=== PATIENT | female | born 1950 | race Caucasian/White ===

== ENCOUNTER 2018-06-21 10:29 | Day surgery (SDC) | payer MEDICARE, OTHER ==
[~2018-06-21] VITALS: Ht 152.4 cm; Wt 72.5 kg
[~2018-06-21 10:29] MED LIST: ASPI1TAB PO; CALTCHW5 PO; LIDOCAINE 2% INJ 100 MG/5 ML SDV (FOR ANES.) As Ordered ONE; MULTTAB PO; NS 1,000 ML IV ONE; OMEG1CAP16 PO; PROPOFOL 200 MG/20 ML VIAL As Ordered ONE; SIMV40TA2 PO
--- NOTE | 2018-06-21 11:43 | ROOR ---
Patient Name: Bernie Manjarrez Procedure Date: 06/21/2018 11:20 AM Date of : 1950 Age: 68 Room: [facility] Gender: Female Note Status: Finalized Procedure: Total Colonoscopy to Cecum Indications: High risk colon cancer surveillance: Personal history of colonic polyps, Last colonoscopy: 2013 Providers: Miles Crum MD Referring MD: BRENDA CONTI NP Requesting Provider: Medicines: Monitored Anesthesia Care Complications: No immediate complications. Procedure: Pre-Anesthesia Assessment: - The heart rate, respiratory rate, oxygen saturations, blood pressure, adequacy of pulmonary ventilation, and response to care were monitored throughout the procedure. The Colonoscope was introduced through the anus and advanced to the cecum, identified by appendiceal orifice and ileocecal valve. The colonoscopy was performed without difficulty. The patient tolerated the procedure well. The quality of the bowel preparation was excellent. Findings: The perianal and digital rectal examinations were normal. Non-bleeding internal hemorrhoids were found during retroflexion. The hemorrhoids were small and Grade I (internal hemorrhoids that do not prolapse). Scattered small-mouthed diverticula were found in the recto-sigmoid colon, sigmoid colon and descending colon. The exam was otherwise without abnormality on direct and retroflexion views. Impression: - Non-bleeding internal hemorrhoids. - Diverticulosis in the recto-sigmoid colon, in the sigmoid colon and in the descending colon. - The examination was otherwise normal on direct and retroflexion views. - No specimens collected. - The exam was otherwise normal to the cecum. Recommendation: - Patient has a contact number available for emergencies. The signs and symptoms of potential delayed complications were discussed with the patient. Return to normal activities tomorrow. Written discharge instructions were provided to the patient. - High fiber diet. - Discharge patient to home. - Continue present medications. - Repeat colonoscopy in 5 years for surveillance. - Return to referring physician. - The findings and recommendations were discussed with the patient's family. Miles Crum MD Miles Crum MD 06/21/2018 11:42:42 AM This report has been signed electronically. Number of Addenda: 0 Note Initiated On: 06/21/2018 11:20 AM Estimated Blood Loss: Estimated blood loss: none.
[2018-06-21 12:08] VITALS: BP 136/77
== END 2018-06-21 12:10 | disposition home or self-care (01) ==
LOC: M OPP 10:29
PROVIDERS: ATTEND Internal Medicine Gastroenterology
DX: Z86.010 Personal history of colon polyps (principal); K64.0 First degree hemorrhoids; K57.30 Diverticulosis of large intestine without perforation or abscess without bleeding; Z79.82 Long term (current) use of aspirin; Z79.899 Other long term (current) drug therapy

== ENCOUNTER → 2019-11-30 | Outpatient (REF) | payer MEDICARE, OTHER ==
[~2019-11-30] MED LIST changes: -ASPI1TAB PO; +ASPI81TA26 PO; -LIDOCAINE 2% INJ 100 MG/5 ML SDV (FOR ANES.) As Ordered ONE; -NS 1,000 ML IV ONE; -PROPOFOL 200 MG/20 ML VIAL As Ordered ONE; -SIMV40TA2 PO; +SIMV40TA20 PO
[2019-11-30 17:12] LABS: BASO % 0.9 % (0.0-1.0); EOS # 0.1 10^3/uL (0.0-0.5); EOS % 2.2 % (0.0-3.0); HEMATOCRIT 41.6 % (36.0-47.0); HEMOGLOBIN 13.4 g/dl (12.0-15.5); LYMPH # 2.1 10^3/uL (1.5-5.0); LYMPH % 45.6 % (24.0-44.0); MEAN CORPUSCULAR HEMOGLOBIN 29.2 pg (27.0-33.0); MEAN CORPUSCULAR HGB CONC 32.2 g/dl (32.0-36.5); MEAN CORPUSCULAR VOLUME 90.6 fl (80.0-96.0); MONO # 0.4 10^3/uL (0.0-0.8); MONO % 9.3 % (0.0-5.0); NEUTROPHILS # 1.9 10^3/uL (1.5-8.5); NEUTROPHILS % 41.8 % (36.0-66.0); PLATELET COUNT, AUTOMATED 294 10^3/uL (150-450); RED BLOOD COUNT 4.59 10^6/uL (4.00-5.40); WHITE BLOOD COUNT 4.5 10^3/uL (4.0-10.0)
[2019-11-30 17:17] LABS: BLOOD UREA NITROGEN 13 MG/DL (7-18); CALCIUM LEVEL 9.6 MG/DL (8.8-10.2); CARBON DIOXIDE LEVEL 26 MEQ/L (21-32); CHLORIDE LEVEL 105 MEQ/L (98-107); GLOMERULAR FILTRATION RATE > 60.0 (>39); GLUCOSE, FASTING 91 MG/DL (70-100); POTASSIUM SERUM 4.5 MEQ/L (3.5-5.1); SODIUM LEVEL 139 MEQ/L (136-145)
[2019-11-30 17:18] LABS: ALBUMIN 4.2 GM/DL (3.2-5.2); ALT/SGPT 26 U/L (12-78); BILIRUBIN,TOTAL 0.4 MG/DL (0.2-1.0); CHOLESTEROL LEVEL 209 MG/DL (<200); HDL CHOLESTEROL 55 MG/DL (>40); LDL CHOLESTEROL 119 MG/DL (<100); NON-HDL-C 154 MG/DL; TOTAL PROTEIN 7.3 GM/DL (6.4-8.2); TRIGLYCERIDES LEVEL 177 MG/DL (<150)
== END ==
LOC: M SFHCADAM 11:47
PROVIDERS: ATTEND Family Medicine
DX: E78.5 Hyperlipidemia, unspecified (principal)

== ENCOUNTER 2020-06-18 12:20 | Emergency (ER) | payer MEDICARE, OTHER ==
[~2020-06-18] VITALS: Ht 149.9 cm; Wt 72.2 kg
--- NOTE | 2020-06-18 13:17 | REP ---
INDICATION: laceration. COMPARISON: None. TECHNIQUE: Four views. FINDINGS: Four views of the right hand demonstrate mild diffuse osteopenia. There is some soft tissue swelling dorsally over the metacarpals. Overlying dressing artifact is seen here.. No fracture or subluxation is seen. No opaque foreign body noted. IMPRESSION: Soft tissue swelling dorsally over the metacarpals. Diffuse osteopenia. No fracture or opaque foreign body seen.. <Electronically signed by Cristi David > 06/18/20 [id number]
--- OUTSIDE RECORDS SUMMARY | 2020-06-18 14:54 | CCD ---
Author Author [facility] Organization [employer] [facility] Address Unknown Phone Unavailable Care Team Providers Care Boiler Installer Name Role Phone Nataliia Gonzalez Unavailable PROBLEMS Type Condition ICD9-CM Code [id number] Code Onset Dates Condition S tatus SNOMED Code Notes Problem Hyperlipidemia, unspecified hyperlipidemia type E7 8.5 Active [id number] ALLERGIES No Known Allergies ENCOUNTERS from 1950 to 2020-04-19 Encounter Location Date Provider Diagnosis [facility] [address] [place] [address] Apr, Nataliia Vicente-Tartestef IMMUNIZATIONS Vaccine Route Administration Date Status Prevnar (Pharmacy Given) Unknown October 26, 2012 Adminis tered Zoster 0.65mL (Zostavax) Unknown Mar 16, 2014 Adminis tered Pneumococcal Adult 0.5mL (Pneumovax 23) Unknown Mar 12, 2016 Administered SOCIAL HISTORY Tobacco Use: Social History Observation Description Date Details (start date - stop date) Never Smoker Sex Assigned At : Social History Observation Description Sex Assigned At Unknown Audit Question Answer Notes Total Score: 0 Interpretation: Alcohol Education Drug and Alcohol Question Answer Notes Total Score: 0 Interpretation: No problems reported Alcohol Screening: Question Answer Notes Did you have a drink containing alcohol in the past year? No Points 0 Interpretation Negative Tobacco Use: Question Answer Notes Are you a: never smoker REASON FOR REFERRAL No Information VITAL SIGNS No information MEDICATIONS Medication SIG (Take, Route, Frequency, Duration) Notes Start Da te End Date Status Aspir-Low 81 MG 1 tablet Orally Once a day for 30 day(s) Active Vitamin C 1000 MG 1 tablet Orally Once a day for 30 day(s) Active AREDS OTC Active Fish Oil 1000 MG 1 capsule Orally Once a day for 30 day(s) Active Simvastatin 40 MG 1 tablet in the evening Oral Daily for 90 days Active Calcium 600 MG 1 tablet with meals Orally Twice a day for 30 day(s) Active PROCEDURES No Information RESULTS No Results REASON FOR VISIT bone density order MEDICAL (GENERAL) HISTORY Type Description Date Medical History hyperlipidemia Medical History heart murmur Medical History osteopenia Medical History normal mammogram (03/2019) Surgical History D & C 3-4 Surgical History colonoscopy (due for next in 2022) Surgical History carpal tunnel R Goals Section No Information Health Concerns No Information MEDICAL EQUIPMENT No Information MENTAL STATUS No Information FUNCTIONAL STATUS No Information ASSESSMENTS No Information PLAN OF TREATMENT No Information Insurance Providers Payer Name Payer Address Payer Phone Insured Name Patient Relati onship to Insured Coverage Start Date Coverage End Date [facility] [address] [address] [facility] [phone] [address] ZIMMER MEDICARE Part A and B [address] [facility] [address] [phone] DANE ZIMMER
--- OUTSIDE RECORDS SUMMARY | 2020-06-18 14:54 | CCD ---
Author Author [employer] Organization [employer] Address Unknown Phone Unavailable Care Team Providers Care Service Employee Name Role Phone Nataliia Gonzalez Unavailable PROBLEMS Type Condition ICD9-CM Code [id number] Code Onset Dates Condition S tatus SNOMED Code Notes Problem Hyperlipidemia, unspecified hyperlipidemia type E7 8.5 Active [id number] ALLERGIES No Known Allergies ENCOUNTERS from 1950 to 2020-03-19 Encounter Location Date Provider Diagnosis [facility] [address] [address] Mar, Nataliia Vicente-Tartestef IMMUNIZATIONS Vaccine Route Administration Date [...] MEDICATIONS Medication SIG (Take, Route, Frequency, Duration) Start Date En d Date Status Aspir-Low 81 MG 1 tablet [...] Information RESULTS No Results REASON FOR VISIT mammo order MEDICAL (GENERAL) HISTORY Type Description Date [...] Insured Coverage Start Date Coverage End Date MEDICARE Part A and B [address] [facility] [phone] [phone] ZIM[address] [facility] [address] [address] [facility] [phone] D[address] ZIMMER
--- OUTSIDE RECORDS SUMMARY | 2020-06-18 14:54 | CCD ---
Author Author [facility] Organization [facility] Address Unknown Phone Unavailable Care Team Providers Care Last Pattern Grader Name Role Phone Nataliia Gonzalez Unavailable PROBLEMS Type Condition ICD9-CM Code [id number] Code Onset Dates Condition S tatus SNOMED Code Notes Problem Hyperlipidemia, unspecified hyperlipidemia type E7 8.5 Active [id number] ALLERGIES No Known Allergies ENCOUNTERS from 1950 to 2020-04-20 Encounter Location Date Provider Diagnosis [facility] [address] [place] [address] Apr, Nataliia Vicente-Tartestef Screening for osteoporosis Z13.820 IMMUNIZATIONS Vaccine Route Administration Date Status Prevnar [...] for 30 day(s) Active Simvastatin 40 MG TAKE ONE TABLET BY MOUTH DAILY IN THE EVENING for 9 0 Active Calcium 600 MG 1 tablet with meals Orally Twice a day for 30 day(s) Active PROCEDURES No Information RESULTS No Results REASON FOR VISIT order for bone density MEDICAL (GENERAL) HISTORY Type Description Date Medical History hyperlipidemia Medical History heart murmur Medical History osteopenia Medical History normal mammogram (03/2019) Surgical History D & C 3-4 Surgical History colonoscopy (due for next in 2022) Surgical History carpal tunnel R Goals Section No Information Health Concerns No Information MEDICAL EQUIPMENT No Information MENTAL STATUS No Information FUNCTIONAL STATUS No Information ASSESSMENTS Encounter Date Diagnosis Assessment Notes Treatment Notes Treatm ent Clinical Notes Apr, Screening for osteoporosis (ICD-10 - Z13.820) PLAN OF TREATMENT Medication Medication Name Sig Start Date Stop Date Simvastatin 40 MG TAKE ONE TABLET BY MOUTH DAILY IN THE EVENING for 90 Future Test Test Name Order Date Dexa, Full Body [id number] Insurance Providers Payer Name Payer Address Payer Phone Insured Name Patient Relati onship to Insured Coverage Start Date Coverage End Date [facility] [address] [address] [facility] [phone] [address] MEDICARE Part A and B [address] [facility] [phone] DANE ZIMMER
--- OUTSIDE RECORDS SUMMARY | 2020-06-18 14:54 | CCD ---
Author Author [facility] Organization [facility] Address Unknown Phone Unavailable Care Team Providers Care Events Assistant Name Role Phone RING, K VIN PA Unavailable Unavailable RING, K VIN PA Unavailable Unavailable RING, K VIN PA Unavailable Unavailable RING, K VIN PA Unavailable Unavailable RING, K VIN PA Unavailable Unavailable RING, K VIN PA Unavailable Unavailable RING, K VIN PA Unavailable Unavailable RING, K VIN PA Unavailable Unavailable RING, K VIN PA Unavailable Unavailable RING, K VIN PA Unavailable Unavailable RING, K VIN PA Unavailable Unavailable RING, K VIN PA Unavailable Unavailable RING, K VIN PA Unavailable Unavailable RING, K VIN PA Unavailable Unavailable RING, K VIN PA Unavailable Unavailable RING, K VIN PA Unavailable Unavailable RING, K VIN PA Unavailable Unavailable RING, K VIN PA Unavailable Unavailable RING, K VIN PA Unavailable Unavailable RING, K VIN PA Unavailable Unavailable RING, K VIN PA Unavailable Unavailable Vicente-Tartell M Nataliia DO Unavailable Unavailabl e Vicente-Tartell, M Nataliia DO Unavailable Unavailabl e Vicente-Tartell, M Nataliia DO Unavailable Unavailabl e Vicente-Tartell, M Nataliia DO Unavailable Unavailabl e Vicente-Tartell, M Nataliia DO Unavailable Unavailabl e Vicente-Tartell, M Nataliia DO Unavailable Unavailabl e Vicente-Tartell, M Nataliia DO Unavailable Unavailabl e Vicente-Tartell, M Nataliia DO Unavailable Unavailabl e Vicente-Tartell, M Nataliia DO Unavailable Unavailabl e Vicente-Tartell, M Nataliia DO Unavailable Unavailabl e Vicente-Tartell, M Nataliia DO Unavailable Unavailabl e Vicente-Tartell, M Nataliia DO Unavailable Unavailabl e Vicente-Tartell, M Nataliia DO Unavailable Unavailabl e Vicente-Tartell, M Nataliia DO Unavailable Unavailabl e Vicente-Tartell, M Nataliia DO Unavailable Unavailabl e Vicente-Tartell, M Nataliia DO Unavailable Unavailabl e Vicente-Tartell, M Nataliia DO Unavailable Unavailabl e Vicente-Tartell, M Nataliia DO Unavailable Unavailabl e Vicente-Tartell, M Nataliia DO Unavailable Unavailabl e Vicente-Tartell, M Nataliia DO Unavailable Unavailabl e Vicente-Tartell, M Nataliia DO Unavailable Unavailabl e Vicente-Tartell, M Nataliia DO Unavailable Unavailabl e Vicente-Tartell, M Nataliia DO Unavailable Unavailabl e Vicente-Tartell, M Nataliia DO Unavailable Unavailabl e Vicente-Tartell, M Nataliia DO Unavailable Unavailabl e Vicente-Tartell, M Nataliia DO Unavailable Unavailabl e Vicente-Tartell, M Nataliia DO Unavailable Unavailabl e Vicente-Tartell, M Nataliia DO Unavailable Unavailabl e Vicente-Tartell, M Nataliia DO Unavailable Unavailabl e Vicente-Tartell, M Nataliia DO Unavailable Unavailabl e Vicente-Tartell, M Nataliia DO Unavailable Unavailabl e Vicente-Tartell, M Nataliia DO Unavailable Unavailabl e Vicente-Tartell, M Nataliia DO Unavailable Unavailabl e Vicente-Tartell, M Nataliia DO Unavailable Unavailabl e Vicente-Tartell, M Nataliia DO Unavailable Unavailabl e Vicente-Tartell, M Nataliia DO Unavailable Unavailabl e Vicente-Tartell, M Nataliia DO Unavailable Unavailabl e Vicente-Tartell, M Nataliia DO Unavailable Unavailabl e Vicente-Tartell, M Nataliia DO Unavailable Unavailabl e Vicente-Tartell, M Nataliia DO Unavailable Unavailabl e Vicente-Tartell, M Nataliia DO Unavailable Unavailabl e Vicente-Tartell, M Nataliia DO Unavailable Unavailabl e Vicente-Tartell, M Nataliia DO Unavailable Unavailabl e Vicente-Tartell, M Nataliia DO Unavailable Unavailabl e Vicente-Tartell, M Nataliia DO Unavailable Unavailabl e Vicente-Tartell, M Nataliia DO Unavailable Unavailabl e Vicente-Tartell, M Nataliia DO Unavailable UnavailMack King MD Unavailable Unavailable Mack Wells MD Unavailable Unavailable Mack Wells MD Unavailable Unavailable Mack Wells MD Unavailable Unavailable Mack Wells MD Unavailable Unavailable Mack Wells MD Unavailable Unavailable Mack Wells MD Unavailable Unavailable Mack Wells MD Unavailable Unavailable Mack Wells MD Unavailable Unavailable Mack Wells MD Unavailable Unavailable Mack Wells MD Unavailable Unavailable Mack Wells MD Unavailable Unavailable Mack Wells MD Unavailable Unavailable Mack Wells MD Unavailable Unavailable Mack Wells MD Unavailable Unavailable Mack Wells MD Unavailable Unavailable Mack Wells MD Unavailable Unavailable Mack Wells MD Unavailable Unavailable Mack Wells MD Unavailable Unavailable Mack Wells MD Unavailable Unavailable Mack Wells MD Unavailable Unavailable Mack Wells MD Unavailable Unavailable Mack Wells MD Unavailable Unavailable Mack Wells MD Unavailable Unavailable Mack Wells MD Unavailable Unavailable Mack Wells MD Unavailable Unavailable Mack Wells MD Unavailable Unavailable Mack Wells MD Unavailable Unavailable Mack Wells MD Unavailable Unavailable Mack Wells MD Unavailable Unavailable Mack Wells MD Unavailable Unavailable Mack Wells MD Unavailable Unavailable Mack Wells MD Unavailable Unavailable Mack Wells MD Unavailable Unavailable Mack Wells MD Unavailable Unavailable Mack Wells MD Unavailable Unavailable Mack Wells MD Unavailable Unavailable Mack Wells MD Unavailable Unavailable Mack Wells MD Unavailable Unavailable PriscillaMack MD Unavailable Unavailable Priscilla, Mack Schrader MD Unavailable Unavailable Priscilla, Mack Schrader MD Unavailable Unavailable Priscilla, Mack Schrader MD Unavailable Unavailable Priscilla, M Macrina ORELLANA Unavailable Unavailable Priscilla, Mack Schrader MD Unavailable Unavailable Prisiclla, Mack Schrader MD Unavailable Unavailable PriscillaMack MD Unavailable Unavailable Priscilla, Mack Schrader MD Unavailable Unavailable Priscilla, Mack Schrader MD Unavailable Unavailable Priscilla, Mack Schrader MD Unavailable Unavailable Priscilla, Mack Schrader MD Unavailable Unavailable PriscillaMack MD Unavailable Unavailable PriscillaMack MD Unavailable Unavailable PriscillaMack MD Unavailable Unavailable Priscilla, Mack Schrader MD Unavailable Unavailable Priscilla, M Macrina ORELLANA Unavailable Unavailable PriscillaMack MD Unavailable Unavailable PriscillaMack MD Unavailable Unavailable Priscilla, Mack Schrader MD Unavailable Unavailable PriscillaMack MD Unavailable Unavailable PriscillaMack MD Unavailable Unavailable PriscillaMack MD Unavailable Unavailable PriscillaMack MD Unavailable Unavailable PriscillaMack MD Unavailable Unavailable PriscillaMack MD Unavailable Unavailable PriscillaMack MD Unavailable Unavailable PriscillaMack MD Unavailable Unavailable PriscillaMack MD Unavailable Unavailable PriscillaMack MD Unavailable Unavailable PriscillaMack MD Unavailable Unavailable Priscilla M Macrina ORELLANA Unavailable Unavailable PriscillaMack MD Unavailable Unavailable PriscillaMack MD Unavailable Unavailable PriscillaMack MD Unavailable Unavailable PriscillaMack MD Unavailable Unavailable PriscillaMack MD Unavailable Unavailable PriscillaMack MD Unavailable Unavailable PriscillaMack MD Unavailable Unavailable Re-disclosure Warning The records that you are about to access may contain information from federally-assisted alcohol or drug abuse programs. If such information is present, then the following federally mandated warning applies: This information has been disclosed to you from records protected by federal confidentiality rules (42 CFR part 2). The federal rules prohibit you from making any further disclosure of this information unless further disclosure is expressly permitted by the written consent of the person to whom it pertains or as otherwise permitted by 42 CFR part 2. A general authorization for the release of medical or other information is NOT sufficient for this purpose. The Federal rules restrict any use of the information to criminally investigate or prosecute any alcohol or drug abuse patient.The records that you are about to access may contain highly sensitive health information, the redisclosure of which is protected by Article 27-F of the [facility] Public Health law. If you continue you may have access to information: Regarding HIV / AIDS; Provided by facilities licensed or operated by the [facility] Office of Mental Health; or Provided by the [facility] Office for People With Developmental Disabilities. If such information is present, then the following [facility] mandated warning applies: This information has been disclosed to you from confidential records which are protected by state law. State law prohibits you from making any further disclosure of this information without the specific written consent of the person to whom it pertains, or as otherwise permitted by law. Any unauthorized further disclosure in violation of state law may result in a fine or assisted sentence or both. A general authorization for the release of medical or other information is NOT sufficient authorization for further disc losure. Family History Family Member Name Family Member Gender Family Member Status Date o f Status Description Data Source(s) Unknown Female Problem MEDENT ([facility]) Unknown Male Problem MEDENT ([facility]) Encounters Encounter Providers Location Date Indications Data Source(s ) Unknown [address], [facility] [address] 04/18/2020 12:00:00 AM EST eCW1 ([facility]) Unknown [address] [facility] [address] 04/18/2020 12:00:00 AM EST eCW1 ([facility]) Unknown [address] [facility] [address] 03/19/2020 12:00:00 AM EST eCW1 ([facility]) Office Visit, Est Pt., Level 2 FC [address] [place] [address] 11/30/2019 12:00:00 AM EDT eCW1 ([facility]) Unknown [address] [facility] [address] 11/04/2019 12:00:00 AM EDT eCW1 ([facility]) Outpatient Referrer: Nataliia Gonzalez DO 11/03/2019 09:30:00 AM EDT [facility] Outpatient Referrer: Macrina Wells MD 11/03/2019 09:28:00 AM EDT [facility] Unknown [address] [address] 11/03/2019 12:00:00 AM EDT eCW1 ([facility]) Outpatient Attender: VIN Garcia Primary 07/21/2019 08:00:00 AM EST [facility] ([facility]) Immunizations Vaccine Date Status Description Data Source(s) INFLUENZA VIRUS VACCINE QUADRIVALENT 2019- (6 MOS AN D UP) 01/17/2020 12:00:00 AM EDT completed [facility] Medications Medication Brand Name Start Date Product Form Dose Route Admi nistrative Instructions Pharmacy Instructions Status Indications Reaction Description Data Source(s) 100 mcg/0.5 mL 06/01/2020 12:00:00 AM EST suspension 0 INJECT BY [facility] (FIRST DOSE) INJECT BY [facility] (FIRST DOSE) SOLD: 06/01/2020 [facility] Nystatin [id number] UNT/ML Topical Cream Nystatin 07/21/2019 12:00:00 AM EST active MEDENT ([facility]) 150 mg 07/21/2019 12:00:00 AM EST tablet 1 TAKE 1 TABLET BY MOUTH ONCE TAKE 1 TABLET BY MOUTH ONCE SOLD: 07/21/2019 [facility] Fluconazole 150 MG Oral Tablet Fluconazole 07/21/2019 12:00:00 AM EST ORAL active MEDENT ([facility]) 100,000 unit/gram 07/21/2019 12:00:00 AM EST cream 30 APPLY TO AFFECTED AREA IN GROIN EVERY 12 HOURS UNTIL RESOLUTION, NOT TO EXCEED 2 WEEKS APPLY TO AFFECTED AREA IN GROIN EVERY 12 HOURS UNTIL RESOLUTION, NOT TO EXCEED 2 WEEKS SOLD: 07/21/2019 [facility] Insurance Providers Payer name Policy type / Coverage type Policy ID Covered libertarian ID Covered libertarian's relationship to ward Policy Ward Plan Information R [facility] [id number] SP [id number] MEDICARE [id number] UMR O [id number] P [id number] MEDICARE C [id number] S [id number] [id number] [place] (Old) Medigap Part B [id number] Family Dependent [id number] Medicare Natl Govt Servic Medicare Primary [id number] Self [id number] Umr (New [place]) Medigap Part B [id number] Family Dependent [id number] Umr (pr) Medigap Part B [id number] Family Dependent [id number] Medicare Dme Supplies Medigap Part B [id number] Self [id number] [place] [id number] Self [id number] Umr (pr) Medigap Part B [id number] Family Dependent [id number] Medicare Dme Supplies Medigap Part B [id number] Self [id number] [place] Primary [id number] Self [id number] Umr (pr) Medigap Part B [id number] Family Dependent [id number] Medicare Dme Supplies Medigap Part B [id number] Self [id number] [place] Primary [id number] Self [id number] UMR [facility] [id number] HU2 [id number] Umr (pr) Medigap Part B [id number] Family Dependent [id number] Medicare Dme Supplies Medigap Part B [id number] Self [id number] [place] Primary [id number] Self [id number] Umr (pr) Medigap Part B [id number] Family Dependent [id number] Medicare Dme Supplies Medigap Part B [id number] Self [id number] [place] Primary [id number] Self [id number] Umr Medigap Part B [id number] Family Dependent [id number] [place] Medigap Part B [id number] Family Dependent [id number] [place] Primary [id number] Self [id number] MEDICARE [id number] SP [id number] A [place] [id number] HU2 [id number] [place] (Old) Medigap Part B [id number] Family Dependent [id number] Medicare Natl Govt Servic Medicare Primary [id number] Self [id number] UMR O UNAVAILABLE P UNAVAILA BLE MEDICARE C [id number] S [id number] A [place] (Old) Medigap Part B [id number] Family Dependent [id number] Medicare Natl Govt Servic Medicare Primary [id number] Self [id number] Umr [place] Ppo Medigap Part B [id number] Family Dependent [id number] Medicare [place] Govt Servic Medicare Primary [id number] Self [id number] [place] PPO O [id number] P [id number] [place] Ppo Medigap Part B [id number] Family Dependent [id number] Medicare [place] Govt Servic Medicare Primary [id number] Self [id number] [place] Ppo Medigap Part B [id number] Family Dependent 333 Medicare Natl Govt Servic Medicare Primary Self MEDICARE [id number] SP [id number] A MEDICARE P UNAVAILABLE S UNAVAILA BLE [id number] Problems, Conditions, and Diagnoses Code Display Name Description Problem Type Effective Dates Data Source(s) E78.5 15783279 Hyperlipidemia, unspecified hyperlipidemi a type Problem 11/30/2019 12:00:00 AM EDT [facility] Results ID Date Data Source [id number] 04/16/2020 12:00:00 AM EST [facility] Caitlin Vicente DO Patient Name: DANE ZIMMER [id number] [address] [facility] [place] [address] Date of Exam: 04/16/2020#: Fax: [phone] EXAM: MAMMO SCREENING WITH CADCLINICAL INFORMATION: Screening.Based on the personal and family history information your patient suppliedat the time of imaging, her lifetime risk of breast cancer estimated by theTyrer-Cuzick model is 2.7%. Given that this patient has less than 20% TCrisk score, no further medical management is currently recommended at thistime.Your patient's personal and/or family history of cancer submitted at thetime of imaging is suggestive of a hereditary cancer syndrome. She meetsthe criteria for genetic testing established by National [facility] and [place] [employer] guidelines. She should pursue arisk assessment with a hereditary cancer specialist which may includetesting based on these criteria. The benefits and limitations of genetictesting would be discussed, including potential changes to medicalmanagement based on the results. Your patient declined myRisk genetictesting at this time.Digital screening (2D) mammography was performed bilaterally in the CC andMLO projections. Additionally, breast tomosynthesis (3D mammography) wasperformed bilaterally in the CC and MLO projections. Today's exam wascompared to the prior exam(s).By history, the patient has no complaints of a palpable breast abnormalityor other significant breast complaints.The patient states last clinical breast exam was some time during thesummer of 2019.The breasts are unchanged in size and shape. There are no ramon-soft tissuedensities or spiculated masses. There is no internal architecturaldistortion. There are no suspicious ramon-calcific clusters. Skinthickening or nipple retraction is not present. Benign calcifications areagain seen bilaterally.The Volpara volumetric breast density category is B, there are scatteredareas of fibroglandular density.IMPRESSION:BI-RADS Category 2 - Benign Finding(s). Stable mammogram. There is noevidence of malignant alteration of the breasts. Followup examinationrecommended in one year.This mammogram was read with the assistance of Laila RANKIN, an FDAapproved computer aided detection system for mammography.Negative x-ray reports should not delay surgical consultation if a dominantor clinically suspicious mass is present.Not all breast cancers can be identified by mammography. Therefore, werecommend that you continue to perform regular breast self-examination andphysical examination and then promptly contact your physician of anyconcerns or changes.Adenosis and dense breasts may obscure an underlying neoplasm.Jossue Carlson, RODGER/Zuri shanks for referring DANE ZIMMER to our office. Electronically Signed - JOSSUE CARLSON DO 04/16/20 16:26 Name Value Range Interpretation Code Description Data Kenia rce(s) Supporting Document(s) ID Date Data Source CBC with Differential 12/01/2019 10:06:41 AM EDT [facility]CW[facility] Name Value Range Interpretation Code Description Data Kenia rce(s) Supporting Document(s) 4.59 RED BLOOD COUNT eCW1 ([facility]) 41.6 HEMATOCRIT eCW1 ([facility]) 4.5 WHITE BLOOD COUNT eCW1 ([facility]) 13.4 HEMOGLOBIN eCW1 ([facility]) 29.2 MEAN CORPUSCULAR HEMOGLOBIN eC W1 [facility]) 32.2 MEAN CORPUSCULAR HGB CONC eCW1 [facility]) 90.6 MEAN CORPUSCULAR VOLUME e[facility]1 ( [facility]) 13.1 RED CELL DISTRIBUTION WIDTH eC W1 ([facility]) 294 PLATELET COUNT, AUTOMATED eCW1 [facility]) 45.6 LYMPH % eCW1 ([facility]) 41.8 NEUTROPHILS % [facility]CW1 [facility]) 0.9 BASO % eCW1 ([facility]) 9.3 MONO % eCW1 ([facility]) 2.2 EOS % eCW1 ([facility]) 1.9 NEUTROPHILS # [facility]CW1 [facility]) 0.1 EOS # eCW1 ([facility]) 0.0 BASO # eCW1 ([facility]) 0.4 MONO # eCW1 ([facility]) 2.1 LYMPH # eCW1 ([facility]) ID Date Data Source Comprehensive Metabolic Profile (CMP) 12/01/2019 10:06:27 AM EDT [facility] Name Value Range Interpretation Code Description Data Kenia rce(s) Supporting Document(s) 0.80 CREATININE FOR GFR eCW1 ([facility]) > 60.0 GLOMERULAR FILTRATION RATE eCW 1 ([facility]) 91 GLUCOSE, FASTING eCW1 ([facility]) 13 BLOOD UREA NITROGEN eCW1 ([facility]) 4.5 POTASSIUM SERUM eCW1 ([facility]) 139 SODIUM LEVEL eCW1 ([facility]) 26 CARBON DIOXIDE LEVEL eCW1 ([facility]) 105 CHLORIDE LEVEL eCW[facility]) 26 ALT/SGPT eCW1 ([facility]) 73 ALKALINE PHOSPHATASE eCW1 ([facility]) 9.6 CALCIUM LEVEL eCW1 [facility]) 22 AST/SGOT eCW1 ([facility]) 0.4 BILIRUBIN,TOTAL eCW1 ([facility]) 7.3 TOTAL PROTEIN eCW1 [facility]) 1.4 ALBUMIN/GLOBULIN RATIO eCW1 ([facility]) 4.2 ALBUMIN eCW1 ([facility]) ID Date Data Source LIPID PANEL (CARDIAC RISK) 12/01/2019 09:15:10 AM EDT [facility] Name Value Range Interpretation Code Description Data Kenia rce(s) Supporting Document(s) Triglyceride [Mass/volume] in Serum or Plasma by calculation 177 TRIGLYCERIDES LEVEL eCW1 ([facility]) Cholesterol [Moles/volume] in Serum or Plasma 209 CHOLESTEROL LEVEL eCW1 [facility]) 154 NON-HDL-C eCW1 ([facility]) 3.800 CHOLESTEROL RISK RATIO eCW1 ([facility]) Cholesterol in LDL [Mass/volume] in Serum or Plasma by calculation 119 LDL CHOLESTEROL eCW1 [facility]) Cholesterol in HDL [Moles/volume] in Serum or Plasma 55 HDL CHOLESTEROL eCW1 [facility]) ID Date Data Source [id number] 05/20/2019 09:16:00 AM EST MEDENT ([facility]) Name Value Range Interpretation Code Description Data Kenia rce(s) Supporting Document(s) Calcidiol [Mass/volume] in Serum or Plasma <pending> MEDENT ([facility]) ID Date Data Source [id number] 05/20/2019 09:16:00 AM EST MEDENT ([facility]) Name Value Range Interpretation Code Description Data Kenia rce(s) Supporting Document(s) Cholesterol [Mass/volume] in Serum or Plasma 205 mg/dL 131-200 MEDENT ([facility]) Triglyceride [Mass/volume] in Serum or Plasma 153 mg/dL 30-150 MEDENT ([facility]) Cholesterol in LDL [Mass/volume] in Serum or Plasma by calcu lation 121 CALC 50-159 MEDENT ([facility]) Cholesterol in HDL [Mass/volume] in Serum or Plasma 53 mg/dL 35-60 MEDENT ([facility]) ID Date Data Source [id number] 05/20/2019 09:16:00 AM EST MEDENT ([facility]) Name Value Range Interpretation Code Description Data Kenia rce(s) Supporting Document(s) Glucose [Mass/volume] in Serum or Plasma 102 mg/dL 74-99 MEDENT ([facility]) 100-125 mg/dL PRE-DIABETES/FASTING >126 mg/dL DIABETES/FASTING Urea nitrogen [Mass/volume] in Serum or Plasma 18 mg/dL 7-18 MEDENT ([facility]) Sodium [Moles/volume] in Serum or Plasma 142 meq/L 136-145 MEDENT ([facility]) Creatinine 0.9 mg/dL 0.6-1.3 [facility] Potassium [Moles/volume] in Serum or Plasma 4.6 meq/L 3.5-5.1 MEDENT ([facility]) Chloride [Moles/volume] in Serum or Plasma 105 meq/L 98-107 MEDENT ([facility]) Carbon dioxide, total [Moles/volume] in Serum or Plasma 24 meq/L 21 -32 MEDENT ([facility]) Alkaline phosphatase isoenzyme [Units/volume] in Serum or Pl asma 83 mg/dL 46-116 MEDENT ([facility]) Total Bilirubin 0.4 mg/dL 0.2-1.0 MEDENT ([facility]) Calcium [Mass/volume] in Serum or Plasma 9.6 mg/dL 8.5-10.1 MEDENT ([facility]) Aspartate aminotransferase [Enzymatic activity/volume] in Serum or Plasma 24 U/L 15-37 MEDENT ([facility] ) Proteinase 3 Ab [Units/volume] in Serum 7.3 g/dL 6.4-8.2 MEDENT ([facility]) Albumin [Mass/volume] in Serum or Plasma 4.1 g/dL 3.4-5.0 MEDENT ([facility]) Alanine aminotransferase [Enzymatic activity/volume] in Seru m or Plasma 31 U/L 12-78 MEDENT ([facility]) Glomerular filtration rate/1.73 sq M pre dicted among non-blacks [Volume Rate/Area] in Serum or Plasma by Creatinine-based formula (MDRD) >= 60 mL/min MEDENT ([facility]) Glomerular filtration rate/1.73 sq M pre dicted among blacks [Volume Rate/Area] in Serum or Plasma by Creatinine-based formula (MDRD) >= 60 mL/min MEDENT ([facility]) <content>CHRONIC KIDNEY DISEASE STAGING PER NKF</content>
<content></content>
<content>STAGE I & II GFR >= 60 NORMAL TO MILDLY DECREASED</content>
<content>STAGE III GFR 30-59 MODERATELY DECREASED</content>
<content>STAGE IV GFR 15-29 SEVERELY DECREASED</content>
<content>STAGE V GFR <15 VERY LITTLE GFR LEFT</content>
<content>ESRD GFR <15 ON SITE IDENTIFICATION SPECIALIST</content>
<content></content> A/G Ratio 1.28 CALC 1.00-1.90 [facility] ([facility]) Procedure Social History Code Duration Value Status Description Data Source(s ) Smoking 11/30/2019 12:00:00 AM EDT Never Smoker completed Never S selam eCW1 ([facility]) Smoking 11/30/2019 12:00:00 AM EDT Never Smoker completed Never S [facility] Smoking 11/30/2019 12:00:00 AM EDT Never Smoker completed Never S moker [facility] Smoking 11/30/2019 12:00:00 AM EDT Never Smoker completed Never S moker e[facility]) Smoking 11/02/2019 12:00:00 AM EDT Never Smoker completed Never S moker e[facility]) Smoking 11/02/2019 12:00:00 AM EDT Never Smoker completed Never S moker [facility]) Vital Signs ID Date Data Source UNK Name Value Range Interpretation Code Description Data Source(s) Diastolic blood pressure 76 mm[Hg] 76 mm[Hg] [facility] Systolic blood pressure 128 mm[Hg] 128 mm[Hg] e CW1 [facility]) Body temperature 96.8 [degF] 96.8 [degF] [facility] Respiratory rate 18 /min 18 /min eCW1 ([facility]) Heart rate 71 /min 71 /min eCW1 ([facility]) Body mass index (BMI) [Ratio] 29.84 kg/m2 29.84 kg/m2 [facility] Body height 60 [in_i] 60 [in_i] eCW1 ([facility]) Body weight 152.8 [lb_av] 152.8 [lb_av] eCW1 ([facility]) Body mass index (BMI) [Ratio] 30.7 kg/m2 30.7 k g/m2 MEDENT ([facility]) Body height 60 [in_i] 60 [in_i] MEDENT ([facility]) 5'0" Body weight 157.00 [lb_av] 157.00 [lb_av] MEDEN T ([facility], [facility]) Body temperature 99.0 [degF] 99.0 [degF] MEDENT ([facility]) Oxygen saturation in Arterial blood by Pulse oximetry 98 % 98 % MEDENT ([facility], [facility]) Respiratory rate 20 /min 20 /min MEDENT ( [facility], [facility] Heart rate 76 /min 76 /min [facility], [facility] Diastolic blood pressure 87 mm[Hg] 87 mm[Hg] [facility] ([facility], [facility] Systolic blood pressure 147 mm[Hg] 147 mm[Hg] [facility], [facility] Body mass index (BMI) [Ratio] 31.1 kg/m2 31.1 k g/m2 MEDENT ([facility]) Body weight 158.00 [lb_av] 158.00 [lb_av] MEDEN T ([facility]) Body height 59.75 [in_i] 59.75 [in_i] [facility] 4'11.75" Heart rate 60 /min 60 /min [facility]) Diastolic blood pressure 84 mm[Hg] 84 mm[Hg] [facility] ([facility]) Systolic blood pressure 136 mm[Hg] 136 mm[Hg] [facility] Diastolic blood pressure 80 mm[Hg] 80 mm[Hg] [facility] ([facility]) RT Arm Systolic blood pressure 152 mm[Hg] 152 mm[Hg] [facility] RT Arm
[2020-06-18] MEDS ORDERED: LIDOCAINE 1% MDV 20ML VIAL As Ordered ONE (15:45)
[2020-06-18] MEDS ORDERED: LIDOCAINE 1% MDV 20ML VIAL SC ONE (16:00)
[2020-06-18 16:38] VITALS: BP 130/63
[2020-06-18] MEDS ORDERED: BOOSTRIX/ADACEL VACCINE (DIPHTH/PERTUSS/ACELL/TETANUS) 0.5ML SYR IM ONE (16:45)
== END 2020-06-18 16:50 | disposition home or self-care (01) ==
LOC: M ED 12:20
DX: S61.411A Laceration without foreign body of right hand, initial encounter (principal); W22.8XXA Striking against or struck by other objects, initial encounter; Y92.9 Unspecified place or not applicable; Y93.89 Activity, other specified; Y99.9 Unspecified external cause status; M85.841 Other specified disorders of bone density and structure, right hand; E78.5 Hyperlipidemia, unspecified; F17.200 Nicotine dependence, unspecified, uncomplicated; Z79.82 Long term (current) use of aspirin; Z79.899 Other long term (current) drug therapy

== ENCOUNTER 2020-06-20 17:29 | Emergency (ER) | payer MEDICARE, OTHER ==
[~2020-06-20] VITALS: Ht 149.9 cm; Wt 71.2 kg
--- OUTSIDE RECORDS SUMMARY | 2020-06-20 17:37 | CCD ---
Author Author [facility] Organization [facility] Address Unknown Phone Unavailable Care Team Providers Care Burner Hand Name Role Phone RING, K VIN PA [...] K VIN PA Unavailable Unavailable RING, K VNI PA Unavailable Unavailable RING, K VIN PA [...] Vicente-Tartell, M Nataliia DO Unavailable Unavailabl e Vicnete-Tartell, M Nataliia DO Unavailable Unavailabl e Vicente-Tartell, [...] is protected by Article 27-F of the [facility] Public Health law. If you continue you may have access to information: Regarding HIV / AIDS; Provided by facilities licensed or operated by the [facility] Office of Mental Health; or Provided by the [facility] Office for People With Developmental Disabilities. If such information is present, then the following [facility] mandated warning applies: This information has been [...] law may result in a fine or care home sentence or both. A general authorization for [...] Date Indications Data Source(s ) Unknown [address] [facility], [facility] [address] 04/18/2020 12:00:00 AM EST eCW1 ([facility]) Unknown [address] [facility] [address] 04/18/2020 12:00:00 AM EST eCW1 ([facility]) Unknown [address] [facility] [address] 03/19/2020 12:00:00 AM EST eCW1 ([facility]) Office Visit, Est Pt., Level 2 FC [address] [place] [address] 11/30/2019 12:00:00 AM EDT eCW1 ([facility]) Unknown [address] [facility] [address] 11/04/2019 12:00:00 AM EDT eCW1 ([facility]) Outpatient Referrer: Nataliia Gonzalez DO 11/03/2019 09:30:00 AM EDT [facility] Outpatient Referrer: Macrina Wells MD 11/03/2019 09:28:00 AM EDT [facility] Unknown [address] [facility] [address] 11/03/2019 12:00:00 AM EDT eCW1 ([facility]) Outpatient Attender: VIN Garcia Primary 07/21/2019 08:00:00 AM EST MEDENT ([facility]) Immunizations Vaccine Date Status Description Data Source(s) INFLUENZA VIRUS VACCINE QUADRIVALENT 2019- (6 MOS AN D UP) 01/17/2020 12:00:00 AM EDT completed [facility] Medications Medication Brand Name Start Date Product Form Dose Route Admi nistrative Instructions Pharmacy Instructions Status Indications Reaction Description Data Source(s) 100 mcg/0.5 mL 06/01/2020 12:00:00 AM EST suspension 0 INJECT BY [facility] (FIRST DOSE) INJECT BY [facility] (FIRST DOSE) SOLD: 06/01/2020 I-lighting Nystatin [id number] UNT/ML Topical Cream Nystatin 07/21/2019 12:00:00 AM [...] NOT TO EXCEED 2 WEEKS SOLD: 07/21/2019 [facility] Insurance Providers Payer name Policy type / Coverage type Policy ID Covered alliance party ID Covered alliance party's relationship to ward Policy Ward Plan Information R [facility] [id number] 2 [id number] MEDICARE [id number] UMR O [id number] P [id number] MEDICARE C [id number] S [id number] [place] (Old) Medigap Part B [id number] Family Dependent [id number] Medicare Natl Govt Servic Medicare Primary [id number] Self [id number] Umr (New [place]) Medigap Part B [id number] Family Dependent [id number] Umr (pr) Medigap Part B [id number] Family Dependent [id number] Medicare Dme Supplies Medigap Part B [id number] Self [id number] [place] Primary [id number] Self [id number] Umr (pr) Medigap Part B [id number] Family Dependent [id number] Medicare Dme Supplies Medigap Part B [id number] Self [id number] [place] Primary [id number] Self [id number] Umr (pr) Medigap Part B [id number] Family Dependent [id number] Medicare Dme Supplies Medigap Part B [id number] Self [id number] [place] Primary [id number] Self [id number] UMR [facility] [id number] HU2 [id number] Umr (pr) Medigap Part B [id number] Family Dependent [id number] Medicare Dme Supplies Medigap Part B [id number] Self [id number] [place] Primary [id number] Self [id number] Umr (pr) Medigap Part B [id number] Family Dependent [id number] Medicare Dme Supplies Medigap Part B [id number] Self [id number] [place] Primary [id number] Self [id number] Umr Medigap Part B [id number] Family Dependent [id number] [place] Medigap Part B [id number] Family Dependent [id number] [place] Primary [id number] Self [id number] MEDICARE [id number] SP [id number] A [place] [id number] HU2 [id number] [place] (Old) Medigap Part B [id number] Family Dependent [id number] Medicare Natl Govt Servic Medicare Primary [id number] Self [id number] UMR O UNAVAILABLE P UNAVAILA BLE MEDICARE C [id number] S [id number] A [place] (Old) Medigap Part B [id number] Family Dependent [id number] Medicare Natl Govt Servic Medicare Primary [id number] Self [id number] Umr [place] Ppo Medigap Part B [id number] Family Dependent [id number] Medicare Natl Govt Servic Medicare Primary [id number] Self [id number] [place] PPO O [id number] P [id number] [place] Ppo Medigap Part B [id number] Family Dependent [id number] Medicare Natl Govt Servic Medicare Primary [id number] Self [id number] [place] Ppo Medigap Part B [id number] Family Dependent 333 Medicare Natl Govt Servic Medicare Primary Self MEDICARE [id number] SP [id number] A MEDICARE P UNAVAILABLE S UNAVAILA BLE [id number] Problems, Conditions, and Diagnoses Code Display Name Description Problem Type Effective Dates Data Source(s) E78.5 87773051 Hyperlipidemia, unspecified hyperlipidemi a type Problem 11/30/2019 12:00:00 AM EDT eCW1 ([facility]) Results ID Date Data Source [id number] 04/16/2020 12:00:00 AM EST [facility] Caitlin Vicente DO Patient Name: DANE ZIMMER [id number] Date of : [place] [address]- Date of Exam: 04/16/2020#: Fax: [phone] EXAM: [...] criteria for genetic testing established by National [facility] and [employer] guidelines. She should pursue arisk [...] breasts may obscure an underlying neoplasm.Jossue Carlson, RODGER/jmcTtreasure shanks for referring DANE ZIMMER to our office. Electronically Signed - JOSSUE CARLSON DO 04/16/20 16:26 Name Value Range Interpretation Code Description Data Kenia rce(s) Supporting Document(s) ID Date Data Source CBC with Differential 12/01/2019 10:06:41 AM EDT eCW1 ([facility]) Name Value Range Interpretation Code Description Data Kenia rce(s) Supporting Document(s) 4.59 RED BLOOD COUNT eCW1 ([facility]) 41.6 HEMATOCRIT eCW1 ([facility]) 4.5 WHITE BLOOD COUNT eCW1 ([facility]) 13.4 HEMOGLOBIN eCW1 ([facility]) 29.2 MEAN CORPUSCULAR HEMOGLOBIN eC W1 ([facility]) 32.2 MEAN CORPUSCULAR HGB CONC eCW1 ([facility]) 90.6 MEAN CORPUSCULAR VOLUME eCW1 ( [facility]) 13.1 RED CELL DISTRIBUTION WIDTH eC W1 ([facility]) 294 PLATELET COUNT, AUTOMATED eCW1 ([facility]) 45.6 LYMPH % eCW1 ([facility]) 41.8 NEUTROPHILS % eCW1 ([facility]) 0.9 BASO % eCW1 ([facility]) 9.3 MONO % eCW1 ([facility]) 2.2 EOS % eCW1 ([facility]) 1.9 NEUTROPHILS # eCW1 ([facility]) 0.1 EOS # eCW1 ([facility]) 0.0 BASO # eCW1 ([facility]) 0.4 MONO # eCW1 ([facility]) 2.1 LYMPH # eCW1 ([facility]) ID Date Data Source Comprehensive Metabolic Profile (CMP) 12/01/2019 10:06:27 AM EDT eCW1 ([facility]) Name Value Range Interpretation Code Description Data Kenia rce(s) Supporting Document(s) 0.80 CREATININE FOR GFR eCW1 ([facility]) > 60.0 GLOMERULAR FILTRATION RATE eCW 1 ([facility]) 91 GLUCOSE, FASTING eCW1 ([facility]) 13 BLOOD UREA NITROGEN eCW1 ([facility]) 4.5 POTASSIUM SERUM eCW1 ([facility]) 139 SODIUM LEVEL eCW1 ([facility]) 26 CARBON DIOXIDE LEVEL eCW1 ([facility]) 105 CHLORIDE LEVEL eCW1 ([facility]) 26 ALT/SGPT eCW1 ([facility]) 73 ALKALINE PHOSPHATASE eCW1 ([facility]) 9.6 CALCIUM LEVEL eCW1 ([facility]) 22 AST/SGOT eCW1 ([facility]) 0.4 BILIRUBIN,TOTAL eCW1 ([facility]) 7.3 TOTAL PROTEIN eCW1 ([facility]) 1.4 ALBUMIN/GLOBULIN RATIO eCW1 ([facility]) 4.2 ALBUMIN eCW1 ([facility]) ID Date Data Source LIPID PANEL (CARDIAC RISK) 12/01/2019 09:15:10 AM EDT eCW1 ( [facility]) Name Value Range Interpretation Code Description Data Kenia rce(s) Supporting Document(s) Triglyceride [Mass/volume] in Serum or Plasma by calculation 177 TRIGLYCERIDES LEVEL eCW1 ([facility]) Cholesterol [Moles/volume] in Serum or Plasma 209 CHOLESTEROL LEVEL eCW1 ([facility]) 154 NON-HDL-C eCW1 ([facility]) 3.800 CHOLESTEROL RISK RATIO eCW1 ([facility]) Cholesterol in LDL [Mass/volume] in Serum or Plasma by calculation 119 LDL CHOLESTEROL eCW1 ([facility]) Cholesterol in HDL [Moles/volume] in Serum or Plasma 55 HDL CHOLESTEROL eCW1 ([facility]) ID Date Data Source [id number] 05/20/2019 09:16:00 AM EST MEDENT ([facility]) Name Value Range Interpretation Code Description Data Kenia rce(s) Supporting Document(s) Calcidiol [Mass/volume] in Serum or Plasma <pending> MEDENT ([facility]) ID Date Data Source [id number] 05/20/2019 09:16:00 AM EST MEDENT ([facility]) Name Value Range Interpretation Code Description Data Kenia rce(s) Supporting Document(s) Cholesterol [Mass/volume] in Serum or Plasma 205 mg/dL 131-200 MEDENT ([facility]) Triglyceride [Mass/volume] in Serum or Plasma 153 mg/dL 30-150 MEDENT ([facility]) Cholesterol in LDL [Mass/volume] in Serum or Plasma by calcu lation 121 CALC 50-159 MEDENT ([facility]) Cholesterol in HDL [Mass/volume] in Serum or Plasma 53 mg/dL 35-60 MEDENT ([facility]) ID Date Data Source [id number] 05/20/2019 09:16:00 AM EST MEDENT ([facility]) Name Value Range Interpretation Code Description Data Kenia rce(s) Supporting Document(s) Glucose [Mass/volume] in Serum or Plasma 102 mg/dL 74-99 MEDENT ([facility]) 100-125 mg/dL PRE-DIABETES/FASTING >126 mg/dL DIABETES/FASTING Urea nitrogen [Mass/volume] in Serum or Plasma 18 mg/dL 7-18 MEDENT ([facility]) Sodium [Moles/volume] in Serum or Plasma 142 meq/L 136-145 MEDENT ([facility]) Creatinine 0.9 mg/dL 0.6-1.3 [facility] Potassium [Moles/volume] in Serum or Plasma 4.6 meq/L 3.5-5.1 MEDENT ([facility]) Chloride [Moles/volume] in Serum or Plasma 105 meq/L 98-107 MEDENT ([facility]) Carbon dioxide, total [Moles/volume] in Serum or Plasma 24 meq/L 21 -32 MEDENT ([facility]) Alkaline phosphatase isoenzyme [Units/volume] in Serum or Pl asma 83 mg/dL 46-116 MEDENT ([facility]) Total Bilirubin 0.4 mg/dL 0.2-1.0 MEDENT ([facility]) Calcium [Mass/volume] in Serum or Plasma 9.6 mg/dL 8.5-10.1 MEDENT ([facility]) Aspartate aminotransferase [Enzymatic activity/volume] in Serum or Plasma 24 U/L 15-37 MEDENT ([facility] ) Proteinase 3 Ab [Units/volume] in Serum 7.3 g/dL 6.4-8.2 MEDENT ([facility]) Albumin [Mass/volume] in Serum or Plasma 4.1 g/dL 3.4-5.0 MEDENT ([facility]) Alanine aminotransferase [Enzymatic activity/volume] in Seru m or Plasma 31 U/L 12-78 MEDENT ([facility]) Glomerular filtration rate/1.73 sq M pre dicted among non-blacks [Volume Rate/Area] in Serum or Plasma by Creatinine-based formula (MDRD) >= 60 mL/min MEDENT ([facility]) Glomerular filtration rate/1.73 sq M pre dicted among blacks [Volume Rate/Area] in Serum or Plasma by Creatinine-based formula (MDRD) >= 60 mL/min MEDENT ([facility]) <content>CHRONIC KIDNEY DISEASE STAGING PER NKF</content>
<content></content>
<content>STAGE I & II GFR >= 60 NORMAL TO MILDLY DECREASED</content>
<content>STAGE III GFR 30-59 MODERATELY DECREASED</content>
<content>STAGE IV GFR 15-29 SEVERELY DECREASED</content>
<content>STAGE V GFR <15 VERY LITTLE GFR LEFT</content>
<content>ESRD GFR <15 ON AUTOMOBILE UPHOLSTERY TRIM INSTALLER</content>
<content></content> A/G Ratio 1.28 CALC 1.00-1.90 [facility] ([facility]) Procedure Social History Code Duration Value Status Description Data Source(s ) Smoking 11/30/2019 12:00:00 AM EDT Never Smoker completed Never S selam eCW1 ([facility]) Smoking 11/30/2019 12:00:00 AM EDT Never Smoker completed Never S moker eCW1 ([facility]) Smoking 11/30/2019 12:00:00 AM EDT Never Smoker completed Never S moker eCW1 ([facility]) Smoking 11/30/2019 12:00:00 AM EDT Never Smoker completed Never S moker eCW1 ([facility]) Smoking 11/02/2019 12:00:00 AM EDT Never Smoker completed Never S moker eCW1 ([facility]) Smoking 11/02/2019 12:00:00 AM EDT Never Smoker completed Never S moker eCW1 ([facility]) Vital Signs ID Date Data Source UNK Name Value Range Interpretation Code Description Data Source(s) Diastolic blood pressure 76 mm[Hg] 76 mm[Hg] eCW1 ([facility]) Systolic blood pressure 128 mm[Hg] 128 mm[Hg] e CW1 ([facility]) Body temperature 96.8 [degF] 96.8 [degF] eCW1 ( [facility]) Respiratory rate 18 /min 18 /min eCW1 ([facility]) Heart rate 71 /min 71 /min eCW1 ([facility]) Body mass index (BMI) [Ratio] 29.84 kg/m2 29.84 kg/m2 eCW1 ([facility]) Body height 60 [in_i] 60 [in_i] eCW1 ([facility]) Body weight 152.8 [lb_av] 152.8 [lb_av] eCW1 ([facility]) Body mass index (BMI) [Ratio] 30.7 kg/m2 30.7 k g/m2 MEDENT ([facility] Body height 60 [in_i] 60 [in_i] MEDENT ([facility]) 5'0" Body weight 157.00 [lb_av] 157.00 [lb_av] MEDEN T ([facility] Body temperature 99.0 [degF] 99.0 [degF] MEDENT ([facility]) Oxygen saturation in Arterial blood by Pulse oximetry 98 % 98 % MEDENT ([facility]) Respiratory rate 20 /min 20 /min MEDENT ( [facility], [facility]) Heart rate 76 /min 76 /min [facility], [facility] Diastolic blood pressure 87 mm[Hg] 87 mm[Hg] [facility] ([facility] Systolic blood pressure 147 mm[Hg] 147 mm[Hg] [facility] Body mass index (BMI) [Ratio] 31.1 kg/m2 31.1 k g/m2 MEDENT ([facility]) Body weight 158.00 [lb_av] 158.00 [lb_av] MEDEN T ([facility]) Body height 59.75 [in_i] 59.75 [in_i] [facility] 4'11.75" Heart rate 60 /min 60 /min [facility] ([facility]) Diastolic blood pressure 84 mm[Hg] 84 mm[Hg] [facility] ([facility]) Systolic blood pressure 136 mm[Hg] 136 mm[Hg] M [facility]) Diastolic blood pressure 80 mm[Hg] 80 mm[Hg] [facility] ([facility]) RT Arm Systolic blood pressure 152 mm[Hg] 152 mm[Hg] M [facility] RT Arm
--- OUTSIDE RECORDS SUMMARY | 2020-06-20 18:31 | CCD ---
Author Author [facility] Organization [facility] Address Unknown Phone Unavailable Care Team Providers Care Material Processor Name Role Phone RING, K VIN PA [...] Unavailable Unavailable Mack Wells MD Unavailable Unavailable Mcak Wells MD Unavailable Unavailable Mack Wells MD Unavailable Unavailable Mack Wells MD Unavailable Unavailable Mack Wells MD Unavailable Unavailable Mack Wells MD Unavailable Unavailable Mack Wells MD Unavailable Unavailable Mack eWlls MD Unavailable Unavailable Mack Wells MD Unavailable [...] Unavailable Priscilla M Macrina ORELLANA Unavailable Unavailable PriscillaMcak MD Unavailable Unavailable PriscillaMack MD Unavailable Unavailable [...] is protected by Article 27-F of the [facility] Public Health law. If you continue you may have access to information: Regarding HIV / AIDS; Provided by facilities licensed or operated by the [facility] Office of Mental Health; or Provided by the [facility] Office for People With Developmental Disabilities. If such information is present, then the following [facility] mandated warning applies: This information has [...] law may result in a fine or mcfp sentence or both. A general authorization for [...] Date Indications Data Source(s ) Unknown [address] [facility], [facility] [address] 04/18/2020 12:00:00 AM EST eCW1 ([facility]) Unknown [address] [facility] [address] 04/18/2020 12:00:00 AM EST eCW1 ([facility]) Unknown [address] [facility] [address] 03/19/2020 12:00:00 AM EST eCW1 ([facility]) Office Visit, Est Pt., Level 2 FC [address] [place] [address] 11/30/2019 12:00:00 AM EDT eCW1 ([facility]) Unknown [address] [facility] [address] 11/04/2019 12:00:00 AM EDT eCW1 ([facility]) Outpatient Referrer: Nataliia Gonzalez DO 11/03/2019 09:30:00 AM EDT [facility] Outpatient Referrer: Macrina Wells MD 11/03/2019 09:28:00 AM EDT [facility] Unknown [address] [facility] [address] 11/03/2019 12:00:00 AM EDT eCW1 ([facility]) Outpatient Attender: VIN Garcia Primary 07/21/2019 08:00:00 AM EST MEDENT ([facility]) Immunizations Vaccine Date Status Description Data Source(s) INFLUENZA VIRUS VACCINE QUADRIVALENT 2019- (6 MOS AN D UP) 01/17/2020 12:00:00 AM EDT completed [facility] Medications Medication Brand Name Start Date Product Form Dose Route Admi nistrative Instructions Pharmacy Instructions Status Indications Reaction Description Data Source(s) 100 mcg/0.5 mL 06/01/2020 12:00:00 AM EST suspension 0 INJECT BY [facility] (FIRST DOSE) INJECT BY [facility] (FIRST DOSE) SOLD: 06/01/2020 [facility] Nystatin [id number] UNT/ML Topical Cream Nystatin 07/21/2019 12:00:00 AM [...] NOT TO EXCEED 2 WEEKS SOLD: 07/21/2019 [facility] Insurance Providers Payer name Policy type / Coverage type Policy ID Covered alliance party ID Covered alliance party's relationship to ward Policy Ward Plan Information R [facility] [id number] 2 [id number] MEDICARE [id number] UMR O [id number] P [id number] MEDICARE C [id number] S [id number] R24 [place] (Old) Medigap Part B [id number] Family Dependent [id number] Medicare Natl Govt Servic Medicare Primary [id number] Self [id number] Umr (New [place]) Medigap Part B [id number] Family Dependent [id number] Umr (pr) Medigap Part B [id number] Family Dependent [id number] Medicare Dme Supplies Medigap Part B [id number] Self [id number] [place] Primary [id number] Self [id number] Umr (pr) Medigap Part B [id number] Family Dependent [id number] Medicare Dme Supplies Medigap Part B [id number] Self [id number] [place] Primary [id number] Self [id number] Umr (pr) Medigap Part B [id number] Family Dependent [id number] Medicare Dme Supplies Medigap Part B [id number] Self [id number] [place] Primary [id number] Self [id number] UMR [facility] [id number] HU2 [id number] Umr (pr) Medigap Part B [id number] Family Dependent [id number] Medicare Dme Supplies Medigap Part B [id number] Self [id number] [place] Primary [id number] Self [id number] Umr (pr) Medigap Part B [id number] Family Dependent [id number] Medicare Dme Supplies Medigap Part B [id number] Self [id number] [place] Primary [id number] Self [id number] Umr Medigap Part B [id number] Family Dependent [id number] [place] Medigap Part B [id number] Family Dependent [id number] [place] Primary [id number] Self [id number] MEDICARE [id number] SP [id number] A [place] [id number] HU2 [id number] [place] (Old) Medigap Part B [id number] Family Dependent [id number] Medicare Natl Govt Servic Medicare Primary [id number] Self [id number] UMR O UNAVAILABLE P UNAVAILA BLE MEDICARE C [id number] S [id number] A [place] (Old) Medigap Part B [id number] Family Dependent [id number] Medicare Natl Govt Servic Medicare Primary [id number] Self [id number] Umr [place] Ppo Medigap Part B [id number] Family Dependent [id number] Medicare [place] Govt Servic Medicare Primary [id number] Self [id number] [place] PPO O [id number] P [id number] [place] Ppo Medigap Part B [id number] Family Dependent [id number] Medicare [place] Govt Servic Medicare Primary [id number] Self [id number] [place] Ppo Medigap Part B [id number] Family Dependent 333 Medicare Natl Govt Servic Medicare Primary Self MEDICARE [id number] SP [id number] A MEDICARE P UNAVAILABLE S UNAVAILA BLE [id number] Problems, Conditions, and Diagnoses Code Display Name Description Problem Type Effective Dates Data Source(s) E78.5 [id number] Hyperlipidemia, unspecified hyperlipidemi a type Problem 11/30/2019 12:00:00 AM EDT eCW1 ([facility]) Results ID Date Data Source [id number] 04/16/2020 12:00:00 AM EST [facility] Caitlin Vicente DO Patient Name: DANE ZIMMER [id number] Date of : [place] [id number]- Date of Exam: 04/16/2020#: Fax: [phone] EXAM: [...] [facility] and [place] [employer] guidelines. She should pursue arisk [...] Differential 12/01/2019 10:06:41 AM EDT eCW1 ([facility]) Name Value Range Interpretation Code Description Data Kenia rce(s) Supporting Document(s) 4.59 RED BLOOD COUNT eCW1 ([facility]) 41.6 HEMATOCRIT eCW1 ([facility]) 4.5 WHITE BLOOD COUNT eCW1 ([facility]) 13.4 HEMOGLOBIN eCW1 ([facility]) 29.2 MEAN CORPUSCULAR HEMOGLOBIN eC W1 ([facility]) 32.2 MEAN CORPUSCULAR HGB CONC eCW1 ([facility]) 90.6 MEAN CORPUSCULAR VOLUME eCW1 ( [facility]) 13.1 RED CELL DISTRIBUTION WIDTH eC W1 ([facility]) 294 PLATELET COUNT, AUTOMATED eCW1 ([facility]) 45.6 LYMPH % eCW1 ([facility]) 41.8 NEUTROPHILS % eCW1 ([facility]) 0.9 BASO % eCW1 ([facility]) 9.3 MONO % eCW1 ([facility]) 2.2 EOS % eCW1 ([facility]) 1.9 NEUTROPHILS # eCW1 ([facility]) 0.1 EOS # eCW1 ([facility]) 0.0 BASO # eCW1 ([facility]) 0.4 MONO # eCW1 ([facility]) 2.1 LYMPH # eCW1 ([facility]) ID Date Data Source Comprehensive Metabolic Profile (CMP) 12/01/2019 10:06:27 AM EDT eCW1 ([facility]) Name Value Range Interpretation Code Description Data Kenia rce(s) Supporting Document(s) 0.80 CREATININE FOR GFR eCW1 ([facility]) > 60.0 GLOMERULAR FILTRATION RATE eCW 1 ([facility]) 91 GLUCOSE, FASTING eCW1 ([facility]) 13 BLOOD UREA NITROGEN eCW1 ([facility]) 4.5 POTASSIUM SERUM eCW1 ([facility]) 139 SODIUM LEVEL eCW1 ([facility]) 26 CARBON DIOXIDE LEVEL eCW1 ([facility]) 105 CHLORIDE LEVEL eCW1 ([facility]) 26 ALT/SGPT eCW1 ([facility]) 73 ALKALINE PHOSPHATASE eCW1 ([facility]) 9.6 CALCIUM LEVEL eCW1 ([facility]) 22 AST/SGOT eCW1 ([facility]) 0.4 BILIRUBIN,TOTAL eCW1 ([facility]) 7.3 TOTAL PROTEIN eCW1 ([facility]) 1.4 ALBUMIN/GLOBULIN RATIO eCW1 ([facility]) 4.2 ALBUMIN eCW1 ([facility]) ID Date Data Source LIPID PANEL (CARDIAC RISK) 12/01/2019 09:15:10 AM EDT eCW1 ( [facility]) Name Value Range Interpretation Code Description Data Kenia rce(s) Supporting Document(s) Triglyceride [Mass/volume] in Serum or Plasma by calculation 177 TRIGLYCERIDES LEVEL eCW1 ([facility]) Cholesterol [Moles/volume] in Serum or Plasma 209 CHOLESTEROL LEVEL eCW1 ([facility]) 154 NON-HDL-C eCW1 ([facility]) 3.800 CHOLESTEROL RISK RATIO eCW1 ([facility]) Cholesterol in LDL [Mass/volume] in Serum or Plasma by calculation 119 LDL CHOLESTEROL eCW1 ([facility]) Cholesterol in HDL [Moles/volume] in Serum or Plasma 55 HDL CHOLESTEROL eCW1 ([facility]) ID Date Data Source [id number] 05/20/2019 09:16:00 AM EST MEDENT ([facility]) Name Value Range Interpretation Code Description Data Kenia rce(s) Supporting Document(s) Calcidiol [Mass/volume] in Serum or Plasma <pending> MEDENT ([facility]) ID Date Data Source [id number] 05/20/2019 09:16:00 AM EST MEDENT ([facility]) Name Value Range Interpretation Code Description Data Kenia rce(s) Supporting Document(s) Cholesterol [Mass/volume] in Serum or Plasma 205 mg/dL 131-200 MEDENT ([facility]) Triglyceride [Mass/volume] in Serum or Plasma 153 mg/dL 30-150 MED[facility] ([facility]) Cholesterol in LDL [Mass/volume] in Serum or Plasma by calcu lation 121 CALC 50-159 MED[facility] ([facility]) Cholesterol in HDL [Mass/volume] in Serum or Plasma 53 mg/dL 35-60 MED[facility] ([facility]) ID Date Data Source [id number] 05/20/2019 09:16:00 AM EST MEDENT ([facility]) Name Value Range Interpretation Code Description Data Kenia rce(s) Supporting Document(s) Glucose [Mass/volume] in Serum or Plasma 102 mg/dL 74-99 MEDENT ([facility]) 100-125 mg/dL PRE-DIABETES/FASTING >126 mg/dL DIABETES/FASTING Urea nitrogen [Mass/volume] in Serum or Plasma 18 mg/dL 7-18 MEDENT ([facility]) Sodium [Moles/volume] in Serum or Plasma 142 meq/L 136-145 MEDENT ([facility]) Creatinine 0.9 mg/dL 0.6-1.3 [facility] Potassium [Moles/volume] in Serum or Plasma 4.6 meq/L 3.5-5.1 MED[facility] ([facility]) Chloride [Moles/volume] in Serum or Plasma 105 meq/L 98-107 MEDENT ([facility]) Carbon dioxide, total [Moles/volume] in Serum or Plasma 24 meq/L 21 -32 MED[facility] ([facility]) Alkaline phosphatase isoenzyme [Units/volume] in Serum or Pl asma 83 mg/dL 46-116 MED[facility] ([facility]) Total Bilirubin 0.4 mg/dL 0.2-1.0 MEDENT ([facility]) Calcium [Mass/volume] in Serum or Plasma 9.6 mg/dL 8.5-10.1 [facility] ([facility]) Aspartate aminotransferase [Enzymatic activity/volume] in Serum or Plasma 24 U/L 15-37 MEDENT ([facility] ) Proteinase 3 Ab [Units/volume] in Serum 7.3 g/dL 6.4-8.2 MED[facility] ([facility]) Albumin [Mass/volume] in Serum or Plasma 4.1 g/dL 3.4-5.0 MED[facility] ([facility]) Alanine aminotransferase [Enzymatic activity/volume] in Seru m or Plasma 31 U/L 12-78 MEDENT ([facility]) Glomerular filtration rate/1.73 sq M pre dicted among non-blacks [Volume Rate/Area] in Serum or Plasma by Creatinine-based formula (MDRD) >= 60 mL/min MEDENT ([facility]) Glomerular filtration rate/1.73 sq M pre dicted among blacks [Volume Rate/Area] in Serum or Plasma by Creatinine-based formula (MDRD) >= 60 mL/min MEDENT ([facility]) <content>CHRONIC KIDNEY DISEASE STAGING PER NKF</content>
<content></content>
<content>STAGE I & II GFR >= 60 NORMAL TO MILDLY DECREASED</content>
<content>STAGE III GFR 30-59 MODERATELY DECREASED</content>
<content>STAGE IV GFR 15-29 SEVERELY DECREASED</content>
<content>STAGE V GFR <15 VERY LITTLE GFR LEFT</content>
<content>ESRD GFR <15 ON PROPOSAL WRITER</content>
<content></content> A/G Ratio 1.28 CALC 1.00-1.90 [facility] ([facility]) Procedure Social History Code Duration Value Status Description Data Source(s ) Smoking 11/30/2019 12:00:00 AM EDT Never Smoker completed Never S selam eCW1 ([facility]) Smoking 11/30/2019 12:00:00 AM EDT Never Smoker completed Never S moker eCW1 ([facility]) Smoking 11/30/2019 12:00:00 AM EDT Never Smoker completed Never S moker eCW1 ([facility]) Smoking 11/30/2019 12:00:00 AM EDT Never Smoker completed Never S moker eCW1 ([facility]) Smoking 11/02/2019 12:00:00 AM EDT Never Smoker completed Never S moker eCW1 ([facility]) Smoking 11/02/2019 12:00:00 AM EDT Never Smoker completed Never S moker eCW1 ([facility]) Vital Signs ID Date Data Source UNK Name Value Range Interpretation Code Description Data Source(s) Diastolic blood pressure 76 mm[Hg] 76 mm[Hg] eCW1 ([facility]) Systolic blood pressure 128 mm[Hg] 128 mm[Hg] e CW1 ([facility]) Body temperature 96.8 [degF] 96.8 [degF] eCW1 ( [facility]) Respiratory rate 18 /min 18 /min eCW1 [facility] Heart rate 71 /min 71 /min eCW1 ([facility]) Body mass index (BMI) [Ratio] 29.84 kg/m2 29.84 kg/m2 eCW1 ([facility]) Body height 60 [in_i] 60 [in_i] eCW1 ([facility]) Body weight 152.8 [lb_av] 152.8 [lb_av] eCW1 ([facility]) Body mass index (BMI) [Ratio] 30.7 kg/m2 30.7 k g/m2 MEDENT ([facility], [facility]) Body height 60 [in_i] 60 [in_i] MEDENT ([facility]) 5'0" Body weight 157.00 [lb_av] 157.00 [lb_av] MEDEN T ([facility], [facility]) Body temperature 99.0 [degF] 99.0 [degF] MEDENT ([facility]) Oxygen saturation in Arterial blood by Pulse oximetry 98 % 98 % MEDENT ([facility], [facility]) Respiratory rate 20 /min 20 /min MEDENT ( [facility], [facility]) Heart rate 76 /min 76 /min [facility], [facility]) Diastolic blood pressure 87 mm[Hg] 87 mm[Hg] [facility], [facility]) Systolic blood pressure 147 mm[Hg] 147 mm[Hg] [facility] ([facility], [facility]) Body mass index (BMI) [Ratio] 31.1 kg/m2 31.1 k g/m2 MEDENT ([facility]) Body weight 158.00 [lb_av] 158.00 [lb_av] MEDEN T ([facility]) Body height 59.75 [in_i] 59.75 [in_i] [facility] 4'11.75" Heart rate 60 /min 60 /min [facility] Diastolic blood pressure 84 mm[Hg] 84 mm[Hg] [facility] Systolic blood pressure 136 mm[Hg] 136 mm[Hg] [facility] Diastolic blood pressure 80 mm[Hg] 80 mm[Hg] [facility] RT Arm Systolic blood pressure 152 mm[Hg] 152 mm[Hg] [facility] RT Arm
[2020-06-20] MEDS ORDERED: CEPH500C PO (18:43)
[2020-06-20] MEDS ORDERED: CEPHALEXIN 500 MG CAP PO ONE (18:45)
[2020-06-20 18:55] VITALS: BP 153/72
== END 2020-06-20 18:57 | disposition home or self-care (01) ==
LOC: M ED 17:29
DX: L08.9 Local infection of the skin and subcutaneous tissue, unspecified (principal); Z79.82 Long term (current) use of aspirin; Z79.899 Other long term (current) drug therapy

== ENCOUNTER → 2020-12-05 | Outpatient (REF) | payer MEDICARE, OTHER ==
[~2020-12-05] MED LIST changes: +CEPH500C PO
[2020-12-05 15:05] LABS: BASO % 0.9 % (0.0-1.0); EOS # 0.3 10^3/uL (0.0-0.5); EOS % 6.6 % (0.0-3.0); HEMATOCRIT 39.6 % (36.0-47.0); HEMOGLOBIN 12.7 g/dl (12.0-15.5); LYMPH # 1.5 10^3/uL (1.5-5.0); LYMPH % 33.5 % (24.0-44.0); MEAN CORPUSCULAR HEMOGLOBIN 29.8 pg (27.0-33.0); MEAN CORPUSCULAR HGB CONC 32.1 g/dl (32.0-36.5); MONO # 0.5 10^3/uL (0.0-0.8); MONO % 11.2 % (2.0-8.0); NEUTROPHILS # 2.2 10^3/uL (1.5-8.5); NEUTROPHILS % 47.6 % (36.0-66.0); PLATELET COUNT, AUTOMATED 289 10^3/uL (150-450); RED BLOOD COUNT 4.26 10^6/uL (4.00-5.40); WHITE BLOOD COUNT 4.5 10^3/uL (4.0-10.0)
[2020-12-05 15:30] LABS: ALT/SGPT 29 U/L (12-78); BILIRUBIN,TOTAL 0.4 MG/DL (0.2-1.0); BLOOD UREA NITROGEN 13 MG/DL (7-18); CALCIUM LEVEL 9.4 MG/DL (8.8-10.2); CARBON DIOXIDE LEVEL 28 MEQ/L (21-32); CHLORIDE LEVEL 105 MEQ/L (98-107); CHOLESTEROL LEVEL 213 MG/DL (<200); CHOLESTEROL RISK RATIO 3.872 (<5); CREATININE FOR GFR 0.75 MG/DL (0.55-1.30); GLOMERULAR FILTRATION RATE > 60.0 (>39); GLUCOSE, FASTING 99 MG/DL (70-100); HDL CHOLESTEROL 55 MG/DL (>40); LDL CHOLESTEROL 110 MG/DL (<100); NON-HDL-C 158 MG/DL; POTASSIUM SERUM 4.8 MEQ/L (3.5-5.1); SODIUM LEVEL 139 MEQ/L (136-145); TRIGLYCERIDES LEVEL 238 MG/DL (<150)
== END ==
LOC: M SFHCADAM 08:58
PROVIDERS: ATTEND Family Medicine
DX: Z00.00 Encounter for general adult medical examination without abnormal findings (principal); Z79.899 Other long term (current) drug therapy

== ENCOUNTER → 2021-01-25 | Outpatient (CLI) | payer MEDICARE, OTHER | LOC: M LABSMTC 11:59 | PROVIDERS: ATTEND Family Medicine | DX: Z20.822 Contact with and (suspected) exposure to COVID-19 (principal) | CPT/HCPCS: C9803; U0003 ==

== ENCOUNTER → 2021-12-24 | Outpatient (REF) | payer MEDICARE, OTHER ==
[2021-12-24 13:17] LABS: BASO % 0.4 % (0.0-1.0); EOS # 0.2 10^3/uL (0.0-0.5); EOS % 4.2 % (0.0-3.0); HEMATOCRIT 38.1 % (36.0-47.0); HEMOGLOBIN 12.2 g/dl (12.0-15.5); LYMPH # 1.6 10^3/uL (1.5-5.0); LYMPH % 35.9 % (24.0-44.0); MEAN CORPUSCULAR VOLUME 93.6 fl (80.0-96.0); MONO # 0.5 10^3/uL (0.0-0.8); NEUTROPHILS # 2.2 10^3/uL (1.5-8.5); NEUTROPHILS % 48.8 % (36.0-66.0); PLATELET COUNT, AUTOMATED 293 10^3/uL (150-450); RED BLOOD COUNT 4.07 10^6/uL (4.00-5.40); WHITE BLOOD COUNT 4.5 10^3/uL (4.0-10.0)
[2021-12-24 14:15] LABS: ALBUMIN 3.9 GM/DL (3.2-5.2); ALT/SGPT 31 U/L (12-78); BILIRUBIN,TOTAL 0.4 MG/DL (0.2-1.0); BLOOD UREA NITROGEN 18 MG/DL (7-18); CALCIUM LEVEL 9.9 MG/DL (8.8-10.2); CARBON DIOXIDE LEVEL 27 MEQ/L (21-32); CHLORIDE LEVEL 108 MEQ/L (98-107); CHOLESTEROL LEVEL 190 MG/DL (<200); CHOLESTEROL RISK RATIO 3.392 (<5); CREATININE FOR GFR 0.68 MG/DL (0.55-1.30); FREE T4 0.93 NG/DL (0.76-1.46); GLOMERULAR FILTRATION RATE > 60.0 (>39); GLUCOSE, FASTING 99 MG/DL (70-100); HDL CHOLESTEROL 56 MG/DL (>40); LDL CHOLESTEROL 97 MG/DL (<100); NON-HDL-C 134 MG/DL; POTASSIUM SERUM 4.5 MEQ/L (3.5-5.1); SODIUM LEVEL 142 MEQ/L (136-145); TOTAL PROTEIN 6.7 GM/DL (6.4-8.2); TRIGLYCERIDES LEVEL 184 MG/DL (<150)
== END ==
LOC: M SFHCADAM 08:00
PROVIDERS: ATTEND Family Medicine
DX: Z00.00 Encounter for general adult medical examination without abnormal findings (principal); E78.5 Hyperlipidemia, unspecified

== ENCOUNTER → 2021-12-25 | Outpatient (CLI) | payer MEDICARE, OTHER | LOC: M WHC 07:48 | PROVIDERS: ATTEND Family Medicine | DX: Z12.31 Encounter for screening mammogram for malignant neoplasm of breast (principal); M85.89 Other specified disorders of bone density and structure, multiple sites ==

== ENCOUNTER → 2022-12-29 | Outpatient (CLI) | payer MEDICARE, OTHER | LOC: M WHC 13:19 | PROVIDERS: ATTEND Family Medicine | DX: Z12.31 Encounter for screening mammogram for malignant neoplasm of breast (principal) ==

== ENCOUNTER 2023-06-11 00:15 | Emergency (ER) | payer MEDICARE, OTHER ==
[~2023-06-11] VITALS: Ht 154.9 cm; Wt 62.7 kg
[2023-06-11 00:15] VITALS: BP 166/86; TEMP 98.6; O2SAT 99
[2023-06-11] MEDS ORDERED: SULF1TAB23 PO (01:15)
[2023-06-11] MEDS ORDERED: BACTRIM 160MG/800MG DS TAB PO ONE (01:15)
== END 2023-06-11 01:49 | disposition home or self-care (01) ==
LOC: M ED 00:15
DX: N30.01 Acute cystitis with hematuria (principal); E78.5 Hyperlipidemia, unspecified; Z79.82 Long term (current) use of aspirin; Z79.899 Other long term (current) drug therapy; Z79.2 Long term (current) use of antibiotics

== ENCOUNTER 2023-08-06 14:42 | Emergency (ER) | payer MEDICARE, OTHER ==
[~2023-08-06] VITALS: Ht 149.9 cm; Wt 64.5 kg
[~2023-08-06 14:42] MED LIST changes: +SULF1TAB23 PO
[2023-08-06 14:43] VITALS: BP 172/86; TEMP 98.2; O2SAT 100
[2023-08-06] MEDS ORDERED: CO Q200C10 PO (14:49)
== END 2023-08-06 15:20 | disposition home or self-care (01) ==
LOC: M ED 14:42
DX: R22.2 Localized swelling, mass and lump, trunk (principal); E78.00 Pure hypercholesterolemia, unspecified; Z79.82 Long term (current) use of aspirin; Z79.899 Other long term (current) drug therapy

== ENCOUNTER → 2023-11-11 | Day surgery (SDC) | payer MEDICARE, OTHER ==
[~2023-11-11] VITALS: Ht 152.4 cm; Wt 61.3 kg
[~2023-11-11] MED LIST changes: +CO Q200C10 PO; +LIDOCAINE 2% 100MG/5ML SDV (FOR ANES.) As Ordered ONE; +PRES10CA2 PO; +VITA-243 PO; +[UNRECOGNIZED DRUG - CODE] PO; +propofoL 200 MG/20 ML VIAL As Ordered ONE
[2023-11-11] MEDS: NS 1,000 ML IV ONE (11:33)
[2023-11-11 12:57] VITALS: TEMP 96.6
[2023-11-11 13:20] VITALS: BP 121/66; O2SAT 98
== END | disposition home or self-care (01) ==
LOC: M OPP 11:10
PROVIDERS: ATTEND Internal Medicine Gastroenterology
DX: Z12.11 Encounter for screening for malignant neoplasm of colon (principal); Z86.010 Personal history of colon polyps; D12.8 Benign neoplasm of rectum; K64.0 First degree hemorrhoids; K57.30 Diverticulosis of large intestine without perforation or abscess without bleeding; Z79.02 Long term (current) use of antithrombotics/antiplatelets; Z79.82 Long term (current) use of aspirin

== ENCOUNTER → 2023-12-30 | Outpatient (REF) | payer MEDICARE, OTHER ==
[~2023-12-30] MED LIST changes: -LIDOCAINE 2% 100MG/5ML SDV (FOR ANES.) As Ordered ONE; -propofoL 200 MG/20 ML VIAL As Ordered ONE
[2023-12-30 13:15] LABS: ALBUMIN 3.9 G/DL (3.2-5.2); ALKALINE PHOSPHATASE 99 U/L (46-116); ALT/SGPT 24 U/L (7.0-40); AST/SGOT 21 U/L (<34); BASO % 0.4 % (0.0-1.0); BILIRUBIN,TOTAL 0.7 MG/DL (0.3-1.2); BLOOD UREA NITROGEN 10 MG/DL (9-23); CALCIUM LEVEL 9.3 MG/DL (8.3-10.6); CARBON DIOXIDE LEVEL 30 MMOL/L (20-31); CHLORIDE LEVEL 105 MMOL/L (98-107); CHOLESTEROL LEVEL 121 MG/DL (<200); CHOLESTEROL RISK RATIO 3.17 (<5); CREATININE FOR GFR 0.61 MG/DL (0.55-1.30); EOS # 0.1 10^3/uL (0.0-0.5); EOS % 1.8 % (0.0-3.0); GLOMERULAR FILTRATION RATE > 60.0 (>39); GLUCOSE, FASTING 91 MG/DL (74-106); HDL CHOLESTEROL 38.1 MG/DL (>40); HEMATOCRIT 31.1 % (36.0-47.0); HEMOGLOBIN 11.3 g/dl (12.0-15.5); LDL CHOLESTEROL 49.1 MG/DL (<100); LYMPH # 1.5 10^3/uL (1.5-5.0); LYMPH % 54.6 % (24.0-44.0); MEAN CORPUSCULAR HEMOGLOBIN 44.8 pg (27.0-33.0); MEAN CORPUSCULAR HGB CONC 36.3 g/dl (32.0-36.5); MONO # 0.4 10^3/uL (0.0-0.8); MONO % 13.1 % (2.0-8.0); NON-HDL-C 82.9 MG/DL; PLATELET COUNT, AUTOMATED 312 10^3/uL (150-450); POTASSIUM SERUM 4.8 MMOL/L (3.5-5.1); RED BLOOD COUNT 2.52 10^6/uL (4.00-5.40); SODIUM LEVEL 137 MMOL/L (136-145); TOTAL PROTEIN 6.5 G/DL (5.7-8.2); TRIGLYCERIDES LEVEL 169 MG/DL (<150); WHITE BLOOD COUNT 2.8 10^3/uL (4.0-10.0)
[2023-12-30 13:18] LABS: THYROID STIMULATING HORMONE 1.378 uIU/ML (0.55-4.78)
[2023-12-30 13:39] LABS: MEAN CORPUSCULAR VOLUME 123.4 fl (80.0-96.0); NEUTROPHILS # 0.8 10^3/uL (1.5-8.5)
[2023-12-30 14:51] LABS: PLATELET ESTIMATE NORMAL (NORMAL)
== END ==
LOC: M SFHCADAM 08:13
PROVIDERS: ATTEND Family Medicine
DX: Z00.00 Encounter for general adult medical examination without abnormal findings (principal); Z79.899 Other long term (current) drug therapy

== ENCOUNTER → 2024-02-16 | Outpatient (REF) | payer MEDICARE, OTHER ==
[2024-02-16 13:56] LABS: BASO % 0.5 % (0.0-1.0); EOS # 0.1 10^3/uL (0.0-0.5); EOS % 3.2 % (0.0-3.0); HEMATOCRIT 30.5 % (36.0-47.0); HEMOGLOBIN 11.2 g/dl (12.0-15.5); LYMPH % 48.5 % (24.0-44.0); MEAN CORPUSCULAR HEMOGLOBIN 45.3 pg (27.0-33.0); MEAN CORPUSCULAR HGB CONC 36.7 g/dl (32.0-36.5); MONO # 0.4 10^3/uL (0.0-0.8); NEUTROPHILS # 1.5 10^3/uL (1.5-8.5); NEUTROPHILS % 36.6 % (36.0-66.0); PLATELET COUNT, AUTOMATED 229 10^3/uL (150-450); RED BLOOD COUNT 2.47 10^6/uL (4.00-5.40)
[2024-02-16 13:57] LABS: MEAN CORPUSCULAR VOLUME 123.5 fl (80.0-96.0)
[2024-02-16 14:22] LABS: FOLATE > 24.0 NG/ML (>5.4); VITAMIN B12 LEVEL 161 PG/ML (211-911)
== END ==
LOC: M SFHCADAM 10:22
PROVIDERS: ATTEND Family Medicine
DX: D75.89 Other specified diseases of blood and blood-forming organs (principal)

== ENCOUNTER → 2024-03-02 | Outpatient (REF) | payer MEDICARE, OTHER ==
[2024-03-02 19:34] LABS: PERCENT SATURATION 27.4 % (13.2-45.0)
[2024-03-02 19:36] LABS: FERRITIN 20.9 NG/ML (7.3-270.7)
[2024-03-06 21:43] LABS: INTRINSIC FACTOR ANTIBODY Positive (Negative)
== END ==
LOC: M SFHCADAM 14:30
PROVIDERS: ATTEND Family Medicine
DX: D51.9 Vitamin B12 deficiency anemia, unspecified (principal)

== ENCOUNTER → 2024-05-04 | Outpatient (CLI) | payer MEDICARE, OTHER | LOC: M RAD 11:04 | PROVIDERS: ATTEND Chiropractor | DX: M47.816 Spondylosis without myelopathy or radiculopathy, lumbar region (principal); M50.322 Other cervical disc degeneration at C5-C6 level; M50.323 Other cervical disc degeneration at C6-C7 level; M99.03 Segmental and somatic dysfunction of lumbar region; M54.41 Lumbago with sciatica, right side; M99.05 Segmental and somatic dysfunction of pelvic region; M62.830 Muscle spasm of back; M99.01 Segmental and somatic dysfunction of cervical region; G43.001 Migraine without aura, not intractable, with status migrainosus ==

== ENCOUNTER → 2025-01-03 | Outpatient (REF) | payer MEDICARE, OTHER ==
[2025-01-03 13:52] LABS: BASO # 0.1 10^3/uL (0.0-0.2); BASO % 1.0 % (0.0-1.0); EOS # 0.2 10^3/uL (0.0-0.5); EOS % 3.2 % (0.0-3.0); LYMPH # 2.0 10^3/uL (1.5-5.0); LYMPH % 33.7 % (24.0-44.0); MONO # 0.7 10^3/uL (0.0-0.8); MONO % 11.9 % (2.0-8.0); NEUTROPHILS # 2.9 10^3/uL (1.5-8.5); NEUTROPHILS % 49.7 % (36.0-66.0); PLATELET COUNT, AUTOMATED 287 10^3/uL (150-450)
[2025-01-03 13:59] LABS: ALT/SGPT 27 U/L (7.0-40); AST/SGOT 29 U/L (<34); CALCIUM LEVEL 10.1 MG/DL (8.3-10.6); CARBON DIOXIDE LEVEL 28 MMOL/L (20-31); CHLORIDE LEVEL 106 MMOL/L (98-107); CHOLESTEROL LEVEL 152 MG/DL (<200); CHOLESTEROL RISK RATIO 3.27 (<5); CREATININE FOR GFR 0.66 MG/DL (0.55-1.30); GLOMERULAR FILTRATION RATE > 90.0 (>39); LDL CHOLESTEROL 61.2 MG/DL (<100); NON-HDL-C 105.6 MG/DL; POTASSIUM SERUM 5.1 MMOL/L (3.5-5.1); SODIUM LEVEL 141 MMOL/L (136-145); TRIGLYCERIDES LEVEL 222 MG/DL (<150)
== END ==
LOC: M SFHCADAM 10:49
PROVIDERS: ATTEND Family Medicine
DX: Z00.00 Encounter for general adult medical examination without abnormal findings (principal); Z79.899 Other long term (current) drug therapy

== ENCOUNTER → 2025-01-18 | Outpatient (CLI) | payer MEDICARE, OTHER | LOC: M WHC 01-11 09:10 | PROVIDERS: ATTEND Family Medicine | DX: Z13.820 Encounter for screening for osteoporosis (principal); M81.0 Age-related osteoporosis without current pathological fracture ==